=== PATIENT | female | born 1985 | race Two or more races ===

== ENCOUNTER 2025-03-13 17:34 | Emergency (ER) | payer BC, OTHER ==
[~2025-03-13] VITALS: Ht 154.9 cm; Wt 65.7 kg
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
[2025-03-13] MEDS ORDERED: NABU-72 PO (20:05)
[2025-03-13] MEDS ORDERED: TIZA-142 PO (20:05)
[2025-03-13 20:19] VITALS: BP 120/85; PULSE 88; RESP 20; TEMP 98; O2SAT 97
== END 2025-03-13 20:22 | disposition home or self-care (01) ==
LOC: ER 17:38
DX: S39.012A Strain of muscle, fascia and tendon of lower back, initial encounter (principal); S13.4XXA Sprain of ligaments of cervical spine, initial encounter; V43.52XA Car driver injured in collision with other type car in traffic accident, initial encounter; Y93.89 Activity, other specified; Y92.488 Other paved roadways as the place of occurrence of the external cause; Y99.8 Other external cause status
CPT/HCPCS: 72040; 72100